=== PATIENT | female | born 1945 | race Caucasian/White ===

== ENCOUNTER 2019-08-23 20:56 | Inpatient (IN) | payer OTHER ==
[~2019-08-23] VITALS: Ht 152.4 cm; Wt 59.9 kg
[2019-08-23] MEDS ORDERED: SODIUM CHLORIDE 0.9% 1,000 ML IV ONE (21:30)
[2019-08-23] MEDS ORDERED: GLUCAGON,HUMAN RECOMBINANT 1MG/VIAL IV ONE ×3 (21:30→23:45)
[2019-08-23] MEDS ORDERED: ONDANSETRON HCL 4MG/2ML INJ IV ONE (22:15)
[2019-08-23 22:53] LABS: BASOPHILS % 0.7 % (0.0-2.0); EOSINOPHILS % 2.2 % (0.0-5.0); HEMATOCRIT. 37.7 % (36.0-48.0); HEMOGLOBIN. 12.8 g/dL (12.0-16.0); MEAN CORPUSCULAR HEMOGLOBIN 31.1 pg (28.0-32.0); MEAN CORPUSCULAR VOLUME 91.7 fL (81.0-99.0); MEAN PLATELET VOLUME 10.2 fl (7.4-10.4); NEUTROPHILS % 61.1 % (40.0-76.0); PLATELET 214 x1000/uL (130-400); RED BLOOD CELL COUNT 4.11 mill/uL (4.2-5.4); RED CELL DISTRIBUTION WIDTH 13.9 % (11.6-14.6)
[2019-08-23 22:58] LABS: CHLORIDE 108 mEq/L (98-107)
[2019-08-23] MEDS ORDERED: DONE10TA36 PO (23:42)
[2019-08-23] MEDS ORDERED: ATOR40TA70 MT (23:42)
[2019-08-23] MEDS ORDERED: AMLO10TA80 PO (23:42)
[2019-08-23] MEDS ORDERED: METO-411 MT (23:42)
[2019-08-23] MEDS ORDERED: LOSA100T32 MT (23:42)
[2019-08-23] MEDS ORDERED: PIOG15TA23 MT (23:42)
[2019-08-24] VITALS (7 sets, daily range): BP systolic 105–173; BP diastolic 45–69
[2019-08-24] MEDS ORDERED: CLONIDINE 0.1MG TABLET PO PRN
[2019-08-24] MEDS ORDERED: ONDANSETRON HCL 4MG/2ML INJ IV PRN
[2019-08-24] MEDS ORDERED: MAGNESIUM/ALUMINUM HYDROXIDE/SIMETHICONE 30ML UDC PO PRN
[2019-08-24] MEDS ORDERED: NA PHOS,M-B/NA PHOS,DI-BA ENEMA 118ML PR PRN
[2019-08-24] MEDS ORDERED: DEXTROSE 50% WATER 50ML SYRINGE IV PRN
[2019-08-24] MEDS ORDERED: DOCUSATE SODIUM 100MG CAPSULE PO PRN
[2019-08-24] MEDS ORDERED: IPRATROPIUM/ALBUTEROL 0.5-3(2.5)MG/3ML NEB HHN PRN
[2019-08-24] MEDS ORDERED: GUAIFENESIN 200MG/10ML SUGAR FREE UDC PO PRN
[2019-08-24] MEDS ORDERED: ACETAMINOPHEN 325MG TABLET PO PRN
[2019-08-24] MEDS ORDERED: DIPHENHYDRAMINE 50MG/ML VIAL IV PRN
[2019-08-24] MEDS ORDERED: LORAZEPAM 2MG/ML CPJ IV PRN
[2019-08-24] MEDS ORDERED: HYDROCODONE/ACETAMINOPHEN 10/325MG TABLET PO PRN
[2019-08-24] MEDS ORDERED: MORPHINE SULFATE 2 MG/ML CPJ (NOT FOR IM USE) IV PRN
[2019-08-24] MEDS ORDERED: DOCU-150 MT (01:20)
[2019-08-24] MEDS ORDERED: ASPI-1393 PO (01:20)
[2019-08-24] MEDS: SODIUM CHLORIDE 0.9% INJ 3ML FLUSH IVF SCH ×3 (06:00→22:00)
[2019-08-24 06:16] LABS: BASOPHILS % 0.6 % (0.0-2.0); EOSINOPHILS % 0.5 % (0.0-5.0); HEMATOCRIT. 41.7 % (36.0-48.0); LYMPHOCYTES % 20.6 % (20.0-50.0); MEAN CORPUSCULAR HEMOGLOBIN 30.6 pg (28.0-32.0); MEAN CORPUSCULAR VOLUME 91.4 fL (81.0-99.0); MEAN PLATELET VOLUME 9.8 fl (7.4-10.4); MONOCYTES % 4.8 % (2.0-8.0); NEUTROPHILS % 73.5 % (40.0-76.0); PLATELET 240 x1000/uL (130-400); RED BLOOD CELL COUNT 4.57 mill/uL (4.2-5.4); RED CELL DISTRIBUTION WIDTH 13.9 % (11.6-14.6)
[2019-08-24] MEDS: BLOOD SUGAR DIAGNOSTIC STRIP TEST SCH ×2 (06:28→11:50)
[2019-08-24 06:31] LABS: CHLORIDE 108 mEq/L (98-107)
[2019-08-24 06:41] LABS: CREATINE KINASE MB FRACTION 1.4 ng/mL (0.5-3.6); LDL CHOLESTEROL 80 mg/dL (5-100)
[2019-08-24 06:42] LABS: CREATINE KINASE 93 IU/L (26-192)
[2019-08-24 06:43] LABS: HDL CHOLESTEROL 74 mg/dL (40-59); T4 FREE 1.12 ng/dL (0.76-1.46)
[2019-08-24] MEDS ORDERED: HALOPERIDOL LACTATE 5MG/ML VIAL IM PRN (06:55)
[2019-08-24] MEDS: ENOXAPARIN 40MG/0.4ML SYR SUBCUT SCH (08:32)
[2019-08-24] MEDS: INSULIN LISPRO 100 UNITS/ML SUBCUT SCH ×2 (08:48→12:20)
[2019-08-24] MEDS ORDERED: POTASSIUM CHLORIDE 20MEQ TABLET SR PO SCH (14:00)
[2019-08-24] MEDS ORDERED: LEVOFLOXACIN 500MG PREMIX 100 ML IV SCH (15:00)
[2019-08-24 15:49] LABS: CREATINE KINASE 117 IU/L (26-192)
[2019-08-24 15:50] LABS: CREATINE KINASE MB FRACTION 2.2 ng/mL (0.5-3.6)
[2019-08-25] VITALS (12 sets, daily range): BP systolic 108–174; BP diastolic 46–78
[2019-08-25] MEDS: BLOOD SUGAR DIAGNOSTIC STRIP TEST SCH ×4 (06:36→21:00)
[2019-08-25] MEDS: INSULIN LISPRO 100 UNITS/ML SUBCUT SCH ×4 (06:37→21:00)
[2019-08-25] MEDS: SODIUM CHLORIDE 0.9% INJ 3ML FLUSH IVF SCH ×3 (06:38→22:17)
[2019-08-25] MEDS: ENOXAPARIN 40MG/0.4ML SYR SUBCUT SCH (10:52)
[2019-08-25] MEDS: LEVOFLOXACIN 250MG PREMIX 50 ML IV SCH (15:04)
[2019-08-26] VITALS (10 sets, daily range): BP systolic 135–169; BP diastolic 58–90
[2019-08-26 05:39] LABS: CHLORIDE 109 mEq/L (98-107)
[2019-08-26 05:46] LABS: BASOPHILS % 0.8 % (0.0-2.0); HEMATOCRIT. 36.4 % (36.0-48.0); HEMOGLOBIN. 12.3 g/dL (12.0-16.0); MEAN CORPUSCULAR HEMOGLOBIN 30.6 pg (28.0-32.0); MEAN CORPUSCULAR VOLUME 90.6 fL (81.0-99.0); MEAN PLATELET VOLUME 9.6 fl (7.4-10.4); MONOCYTES % 6.4 % (2.0-8.0); NEUTROPHILS % 54.8 % (40.0-76.0); PLATELET 203 x1000/uL (130-400); RED BLOOD CELL COUNT 4.02 mill/uL (4.2-5.4); RED CELL DISTRIBUTION WIDTH 13.7 % (11.6-14.6)
[2019-08-26] MEDS: SODIUM CHLORIDE 0.9% INJ 3ML FLUSH IVF SCH ×3 (06:00→21:39)
[2019-08-26] MEDS: BLOOD SUGAR DIAGNOSTIC STRIP TEST SCH ×4 (06:42→21:30)
[2019-08-26] MEDS: INSULIN LISPRO 100 UNITS/ML SUBCUT SCH ×4 (07:20→21:00)
[2019-08-26] MEDS: ENOXAPARIN 40MG/0.4ML SYR SUBCUT SCH (08:35)
[2019-08-26] MEDS: LEVOFLOXACIN 250MG PREMIX 50 ML IV SCH (15:16)
[2019-08-26 16:05] LABS: INR 1.1; PROTHROMBIN TIME 10.9 sec (9.6-11.0)
[2019-08-26 18:03] LABS: CLARITY URINE CLEAR (CLEAR); COLOR URINE YELLOW (YELLOW); KETONES URINE NEGATIVE (NEGATIVE); LEUKOCYTE ESTERASE URINE 1+ (NEGATIVE); NITRITE URINE POSITIVE (NEGATIVE); OCCULT BLOOD URINE NEGATIVE (NEGATIVE); PH URINE 5.5 (4.5-8.0); PROTEIN URINE NEGATIVE (NEGATIVE); SPECIFIC GRAVITY URINE 1.008 (1.005-1.030); UROBILINOGEN URINE 0.2 E.U./dL (0.2-1.0)
[2019-08-27] VITALS (14 sets, daily range): BP systolic 93–192; BP diastolic 50–87
[2019-08-27] MEDS: BLOOD SUGAR DIAGNOSTIC STRIP TEST SCH ×5 (04:48→21:23)
[2019-08-27] MEDS: INSULIN LISPRO 100 UNITS/ML SUBCUT SCH ×5 (04:51→21:00)
[2019-08-27 05:23] LABS: BASOPHILS % 0.8 % (0.0-2.0); EOSINOPHILS % 2.3 % (0.0-5.0); HEMATOCRIT. 36.8 % (36.0-48.0); HEMOGLOBIN. 12.3 g/dL (12.0-16.0); LYMPHOCYTES % 36.5 % (20.0-50.0); MEAN CORPUSCULAR HEMOGLOBIN 30.6 pg (28.0-32.0); MEAN CORPUSCULAR VOLUME 91.4 fL (81.0-99.0); MEAN PLATELET VOLUME 9.4 fl (7.4-10.4); MONOCYTES % 6.4 % (2.0-8.0); PLATELET 215 x1000/uL (130-400); RED BLOOD CELL COUNT 4.03 mill/uL (4.2-5.4)
[2019-08-27 05:30] LABS: CHLORIDE 108 mEq/L (98-107)
[2019-08-27] MEDS: SODIUM CHLORIDE 0.9% INJ 3ML FLUSH IVF SCH ×3 (06:27→21:25)
[2019-08-27] MEDS ORDERED: MIDAZOLAM HCL 2 MG/2 ML VIAL ONE ×2 (07:50→08:39)
[2019-08-27] MEDS ORDERED: HEPARIN 1,000 UNITS PREMIX 0 ML IV ONE (07:51)
[2019-08-27] MEDS ORDERED: GENTAMICIN SULF 40MG/ML 2ML VIAL ONE (07:51)
[2019-08-27] MEDS ORDERED: FENTANYL CITRATE/PF 50MCG/ML 2ML VIAL ONE ×2 (07:51→08:40)
[2019-08-27] MEDS ORDERED: CEFAZOLIN 1000MG PREMIX 50 ML IV ONE (07:52)
[2019-08-27] MEDS ORDERED: LIDOCAINE HCL 1% 20ML VIAL (Pyxis) INJ ONE ×2 (07:52→09:08)
[2019-08-27] MEDS ORDERED: GENTAMICIN/NS IRRIGATION 500 ML IR ONE (07:52)
[2019-08-27] MEDS ORDERED: IODIXANOL 320MG/ML 100 ML BOTTLE IV ONE (08:36)
[2019-08-27] MEDS ORDERED: DIPHENHYDRAMINE 50MG/ML VIAL ONE (08:39)
[2019-08-27] MEDS ORDERED: HYDROCODONE/ACETAMINOPHEN 5/325MG TABLET PO PRN (10:45)
[2019-08-27] MEDS: LEVOFLOXACIN 250MG PREMIX 50 ML IV SCH (14:09)
[2019-08-28] VITALS (9 sets, daily range): BP systolic 101–141; BP diastolic 52–74
[2019-08-28] MEDS: BLOOD SUGAR DIAGNOSTIC STRIP TEST SCH ×2 (05:49→11:52)
[2019-08-28] MEDS: SODIUM CHLORIDE 0.9% INJ 3ML FLUSH IVF SCH (05:50)
[2019-08-28] MEDS: INSULIN LISPRO 100 UNITS/ML SUBCUT SCH ×2 (07:20→12:25)
[2019-08-28 07:38] LABS: BASOPHILS % 0.5 % (0.0-2.0); EOSINOPHILS % 2.4 % (0.0-5.0); HEMATOCRIT. 37.9 % (36.0-48.0); LYMPHOCYTES % 28.4 % (20.0-50.0); MEAN CORPUSCULAR HEMOGLOBIN 31.1 pg (28.0-32.0); MEAN CORPUSCULAR VOLUME 90.5 fL (81.0-99.0); MEAN PLATELET VOLUME 9.8 fl (7.4-10.4); MONOCYTES % 7.7 % (2.0-8.0); PLATELET 207 x1000/uL (130-400); RED BLOOD CELL COUNT 4.19 mill/uL (4.2-5.4); RED CELL DISTRIBUTION WIDTH 13.9 % (11.6-14.6)
[2019-08-28 07:46] LABS: CHLORIDE 105 mEq/L (98-107)
[2019-08-28] MEDS ORDERED: LEVOFLOXACIN 250MG TABLET PO SCH (15:00)
== END 2019-08-28 14:48 | disposition home health service (06) | DRG 171 ==
LOC: ER 20:56 → 3WST 23:39 → EDBEDREQSVC 23:40 → EDBEDREQ 23:40 → EDBEDREQTM 23:40 → ENRESERV 23:52 → CANRESERV 23:52 → ENRESERV 23:55
PROVIDERS: ADMIT Internal Medicine; ATTEND Internal Medicine
PROC: 0JH606Z Insertion of Pacemaker, Dual Chamber into Chest Subcutaneous Tissue and Fascia, Open Approach (ICD-10-PCS; principal; 2019-08-27)
PROC: 02H63JZ Insertion of Pacemaker Lead into Right Atrium, Percutaneous Approach (ICD-10-PCS; 2019-08-27)
PROC: 02HK3JZ Insertion of Pacemaker Lead into Right Ventricle, Percutaneous Approach (ICD-10-PCS; 2019-08-27)
PROC: B5171ZZ Fluoroscopy of Left Subclavian Vein using Low Osmolar Contrast (ICD-10-PCS; 2019-08-27)
PROC: 4B02XSZ Measurement of Cardiac Pacemaker, External Approach (ICD-10-PCS; 2019-08-28)
DX: I49.5 Sick sinus syndrome (principal); E11.65 Type 2 diabetes mellitus with hyperglycemia; F03.90 Unspecified dementia, unspecified severity, without behavioral disturbance, psychotic disturbance, mood disturbance, and anxiety; G90.8 Other disorders of autonomic nervous system; I10 Essential (primary) hypertension; E78.5 Hyperlipidemia, unspecified; Z79.84 Long term (current) use of oral hypoglycemic drugs
CPT/HCPCS: 33208; 36415; 71045; 75820; 80048; 80061; 81003; 82550; 82553; 82962; 83880; 84439; 84443; 84484; 93005; 93306; 93970; 96374; 97162; 99291; C1785; C1893; C1898; J0690; J1200; J1580; J1610; J1630; J1644; J1650; J1815; J1956; J2060; J2250; J3010; J3490; J7030; J7040; Q9967